=== PATIENT | male | born 1970 | race Caucasian/White ===

== ENCOUNTER 2022-06-18 21:39 | Emergency (ER) | payer SELFPAY ==
[~2022-06-18] VITALS: Ht 177.8 cm; Wt 104.3 kg
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
--- NOTE | 2022-06-18 22:18 | NUR ---
Patient does not wish to proceed with medical care recommended by Dr. Sandoval. Patient given information related to possible complications, up to and including , which could occur as a result of leaving the hospital at this time. Patient verbalizes understanding of risks involved due to leaving against medical advice. Patient has signed AMA form.
[2022-06-18 22:19] VITALS: BP 175/80
== END 2022-06-18 22:20 | disposition left against medical advice (07) ==
LOC: ER 21:58
DX: R07.89 Other chest pain (principal); F41.9 Anxiety disorder, unspecified; R45.0 Nervousness